=== PATIENT | female | born 1965 | race Two or more races ===

== ENCOUNTER 2018-09-25 08:11 | Outpatient (CLI) | payer OTHER | END 2018-09-25 08:15 | disposition home or self-care (01) | LOC: LAB 08:11 | DX: D50.8 Other iron deficiency anemias (principal); E03.8 Other specified hypothyroidism; E78.3 Hyperchylomicronemia ==

== ENCOUNTER 2018-09-25 08:25 | Outpatient (CLI) | payer OTHER | END 2018-09-25 09:14 | disposition home or self-care (01) | LOC: MAMO-SONO 08:25 | DX: Z12.31 Encounter for screening mammogram for malignant neoplasm of breast (principal); Z87.898 Personal history of other specified conditions; N60.11 Diffuse cystic mastopathy of right breast; N60.12 Diffuse cystic mastopathy of left breast ==

== ENCOUNTER 2018-09-25 10:31 | Outpatient (CLI) | payer OTHER | END 2018-09-25 10:33 | disposition home or self-care (01) | LOC: NUCLEAR 10:31 | DX: M81.0 Age-related osteoporosis without current pathological fracture (principal) ==

== ENCOUNTER 2019-03-15 06:00 | Day surgery (SDC) | payer OTHER | END 2019-03-15 09:49 | disposition home or self-care (01) | LOC: AMB-ENDOS 06:00 | DX: K57.32 Diverticulitis of large intestine without perforation or abscess without bleeding (principal); K57.30 Diverticulosis of large intestine without perforation or abscess without bleeding; Z12.11 Encounter for screening for malignant neoplasm of colon ==

== ENCOUNTER → 2020-05-12 | Outpatient (CLI) | payer OTHER | END | disposition home or self-care (01) | LOC: MRI 11:52 | DX: M25.811 Other specified joint disorders, right shoulder (principal) | CPT/HCPCS: 73221 ==

== ENCOUNTER 2020-10-22 20:38 | Emergency (ER) | payer OTHER ==
[~2020-10-22] VITALS: Ht 160 cm; Wt 70.3 kg
[2020-10-22] MEDS ORDERED: AMOX1TAB5 PO (22:00)
[2020-10-22] MEDS ORDERED: NAPROXEN375 MG PO (22:00)
[2020-10-22] MEDS ORDERED: INTESTINEX680 M1 PO (22:00)
[2020-11-24] MEDS ORDERED: ACETAMINOPHEN650 M2 (15:44)
== END 2020-10-22 22:12 | disposition home or self-care (01) ==
LOC: ER 20:38
DX: S90.414A Abrasion, right lesser toe(s), initial encounter (principal); W10.8XXA Fall (on) (from) other stairs and steps, initial encounter; Y93.01 Activity, walking, marching and hiking; Y92.89 Other specified places as the place of occurrence of the external cause; Y99.8 Other external cause status

== ENCOUNTER 2021-12-24 11:17 | Outpatient (CLI) | payer OTHER ==
[~2021-12-24 11:17] MED LIST: ACETAMINOPHEN650 M2; AMOX1TAB5 PO; INTESTINEX680 M1 PO; NAPROXEN375 MG PO
== END 2021-12-24 11:18 | disposition home or self-care (01) ==
LOC: LAB 11:17
PROVIDERS: ATTEND Obstetrics & Gynecology
DX: E16.2 Hypoglycemia, unspecified (principal); N39.0 Urinary tract infection, site not specified; E78.2 Mixed hyperlipidemia; E56.9 Vitamin deficiency, unspecified; E55.9 Vitamin D deficiency, unspecified; E03.9 Hypothyroidism, unspecified; R97.1 Elevated cancer antigen 125 [CA 125]; R53.1 Weakness; E66.01 Morbid (severe) obesity due to excess calories; Z11.3 Encounter for screening for infections with a predominantly sexual mode of transmission

== ENCOUNTER 2021-12-24 11:55 | Outpatient (CLI) | payer OTHER | END 2021-12-24 12:12 | disposition home or self-care (01) | LOC: MAMO-SONO 11:55 | PROVIDERS: ATTEND Obstetrics & Gynecology | DX: Z12.31 Encounter for screening mammogram for malignant neoplasm of breast (principal); N60.01 Solitary cyst of right breast ==

== ENCOUNTER 2021-12-24 14:00 | Outpatient (CLI) | payer OTHER | END 2021-12-24 14:07 | disposition home or self-care (01) | LOC: NUCLEAR 14:00 | PROVIDERS: ATTEND Obstetrics & Gynecology | DX: M81.0 Age-related osteoporosis without current pathological fracture (principal) ==

== ENCOUNTER 2022-12-09 07:49 | Outpatient (CLI) | payer OTHER | END 2022-12-09 08:07 | disposition home or self-care (01) | LOC: MRI 07:49 | PROVIDERS: ATTEND Internal Medicine Rheumatology | DX: M54.16 Radiculopathy, lumbar region (principal) | CPT/HCPCS: 72148 ==

== ENCOUNTER → 2024-05-29 14:58 | Outpatient (CLI) | payer OTHER | END | disposition home or self-care (01) | LOC: NUCLEAR 05-24 11:00 | DX: M81.0 Age-related osteoporosis without current pathological fracture (principal) ==

== ENCOUNTER → 2024-05-29 | Outpatient (CLI) | payer OTHER | END | disposition home or self-care (01) | LOC: MAMO-SONO 13:56 | PROVIDERS: ATTEND Internal Medicine Rheumatology | DX: R97.1 Elevated cancer antigen 125 [CA 125] (principal); N83.209 Unspecified ovarian cyst, unspecified side; N60.32 Fibrosclerosis of left breast ==